=== PATIENT | male | born 1985 | race Caucasian/White ===

== ENCOUNTER 2018-10-13 19:37 | Emergency (ER) | payer OTHER ==
[~2018-10-13] VITALS: Ht 180.3 cm; Wt 79.4 kg
--- NOTE | 2018-10-13 19:50 | ER.PDOC ---
General Chief Complaint: Requesting Medical Care Stated Complaint: POSSIBLE SEIZURES Time seen by MD: 19:42 Source: patient Exam Limitations: no limitations History of Present Illness Initial Comments Pt states he is epileptic and that over the last several days he has been living in his car, lives in [place] and has not taken his medicines for that long. Not seizing at the moment he also states that he has chest pain and cough for a few days Timing/Onset/Duration: Unknown Duration, Unknown Number Preceding Symptoms/Context: none Injury: none Allergies: Coded Allergies: No Known Allergies (Unverified , 02/16/15) Home Meds No Active Prescriptions or Reported Meds Past Medical History Surgical History: no surgical history Constitutional: no symptoms reported EENTM: no symptoms reported Respiratory: cough Cardiovascular: chest pain Gastrointestinal: no symptoms reported Genitourinary: no symptoms reported Musculoskeletal: no symptoms reported Skin: no symptoms reported Psychiatric/Neurological: see HPI, anxiety Endocrine: no symptoms reported Hematologic/Lymphatic: no symptoms reported Physical Exam General Appearance: alert, no distress EENT: nml eye inspection, PERRL, no nystagmus, nml ENT inspection, no apparent , pharynx nml, no CSF leak Neck/Back: neck supple, non-tender Respiratory: no resp distress, breath sounds nml, no evidence of rib injury, rhonchi (scattered) CVS: reg rate & rhythm, heart sounds nml Abdomen: no organomegaly, no distention, tenderness (RUQ minimal) Skin: color nml, no rash, warm/dry Extremities: non-tender, nml ROM, no pedal edema Neuro/Psych: oriented x 3, speech nml, mood/affect nml Cerebellar: nml tested, nml Romberg Sensorimotor: no motor deficit, no sensory deficit, reflexes nml Departure Time of Disposition: 21:14 Disposition: 01 HOME, SELF-CARE Impression: Primary Impression: Seizure disorder Condition: Stable Patient Instructions: Seizure, Adult Referrals: PCP,UNKNOWN (PCP) PRIMARY CARE PROVIDER Scripts No Active Prescriptions or Reported Meds Duration or Time Spent with Pa: NATA HILLMAN MD Oct 13, 2018 19:50
[2018-10-13 19:51] VITALS: BP 159/94
[2018-10-13] MEDS ORDERED: NS 1000ML 1,000 ML STA (19:58)
[2018-10-13 20:12] LABS: BASOPHIL % 0.1 % (0.0-0.2); EOSINOPHIL # 0.1 10^3/uL (0.0-0.2); EOSINOPHIL % 1.2 % (0.0-5.0); HEMOGLOBIN 14.5 g/dL (13.9-16.3); LYMPHOCYTES % 18.6 % (24.0-44.0); MEAN CELL HGB 30.3 pg (26-34); MEAN CORP VOLUME 89.1 fL (78-100); MEAN PLATELET VOLUME 10.8 fL (7.8-11.0); MONOCYTES % 8.9 % (5.0-12.0); NEUTROPHIL # 7.6 10^3/uL (1.8-7.7); RED CELL DISTRIBUTION WIDTH 12.7 % (11.5-14.5); WHITE BLOOD CELL 10.7 10^3/uL (4.5-11.0)
--- NOTE | 2018-10-13 20:19 | PCM.EKG ---
[facility] Test Date: 2018-10-13 Test Time: 20:19:12 Pat Name: JOSE GRUBBS Department: Patient ID: [id number] Room: Gender: M Manager Activities: [place] [id number] : 1985 Requested By: NATA CARTER Order Number: [id number] Reading MD: Nata Carter Measurements Intervals [place] Rate: 95 P: 76 ME: 130 QRS: 73 QRSD: 102 T: 67 QT: 362 QTc: 454 Interpretive Statements Normal sinus rhythm Normal ECG No previous ECG available for comparison Electronically Signed On 10-15-2018 7:13:55 [employer] by Nata Carter Please click the below link to view image of tracing.
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
--- NOTE | 2018-10-13 20:34 | NUR ---
PLAN OF CARE PER DR ANDREWS, AFTER MEDICALLY CLEARED, [facility] WILL BE CONTACTED FOR POSSIBLE FURTHER EVALUATION FOR TREATMENT.
[2018-10-13 20:36] LABS: ALANINE AMINOTRANSFERASE(ML) 49 U/L (12-78); ALKALINE PHOSPHATASE 94 U/L (50-136); ASPARTATE AMINO TRANSFERASE 59 U/L (0-35); CALCIUM 10.1 mg/dL (8.4-10.5); CARBON DIOXIDE 27.6 mmol/L (20.0-32); GLUCOSE 150 mg/dL (70-110)
--- NOTE | 2018-10-13 20:41 | DIREP ---
PROCEDURE:CT HEAD WITHOUT CONTRAST TECHNIQUE:Axial cuts were obtained through the head, without intravenous contrast material. The images were viewed at brain and bone settings. COMPARISON:None. INDICATIONS:Seizures, AMS FINDINGS: VENTRICLES:Normal. CEREBRUM:Diminished sulcal size may be secondary to recent seizure. No hemorrhage, infarct or mass lesion CEREBELLUM:Normal. BRAINSTEM:Normal. SKULL:Normal. SINUSES:Normal. OTHER:Negative. CONCLUSION:Diminished sulcal size may be secondary to recent seizure or represent normal finding. No other abnormalities. Dictated by: Barry Cordova M.D. on 10/13/2018 at 08:36 PM
[2018-10-13 20:42] LABS: BILIRUBIN,URINE NEGATIVE (NEGATIVE); UROBILINOGEN,URINE NORMAL (NEGATIVE)
--- NOTE | 2018-10-13 20:42 | DIREP ---
PROCEDURE:CHEST 1 VIEW COMPARISON:None. INDICATIONS:Cough FINDINGS: LUNGS/PLEURA:Hyperaeration may represent asthma. No infiltrates, nodules or mass lesions. VASCULATURE:Normal. Unremarkable pulmonary vasculature. CARDIAC:Normal. No cardiac silhouette abnormality or cardiomegaly. MEDIASTINUM:Normal. No visible mass or adenopathy. BONES:Normal. No fracture or visible bony lesion. OTHER:Negative. CONCLUSION:Hyperaeration otherwise normal. Dictated by: Barry Cordova M.D. on 10/13/2018 at 08:40 PM
[2018-10-13 20:44] LABS: APPEARANCE,URINE CLEAR (CLEAR); UA COLOR YELLOW (YELLOW)
--- NOTE | 2018-10-13 21:02 | NUR ---
DISCHARGE PLAN PATIENT STATES THAT HE HAS HIS CAR AND CAN FIND HIS WAY BACK HOME TO [place], BUT HE DOES NOT HAVE ANY GAS IN HIS CAR OR MONEY TO GET ANY.
[2018-10-13] MEDS ORDERED: DEPAKOTE ER PO STA (21:14)
[2018-10-13 21:30] VITALS: BP 144/79
[2018-10-13 21:41] VITALS: BP 159/94
== END 2018-10-13 21:33 | disposition home or self-care (01) ==
LOC: ER 19:37
DX: G40.909 Epilepsy, unspecified, not intractable, without status epilepticus (principal); R07.9 Chest pain, unspecified; R05 Cough; R10.11 Right upper quadrant pain
CPT/HCPCS: 36415; 70450; 71045; 80053; 80164; 80307; 81002; 82550; 84484; 85025; 85610; 85730; 93005; 99284